=== PATIENT | female | born 1990 | race African-American/Black ===

== ENCOUNTER 2018-10-30 13:14 | Emergency (ER) | payer MEDICAID ==
[~2018-10-30] VITALS: Ht 162.6 cm; Wt 70.0 kg
[2018-10-30 13:28] VITALS: Ht 162.6 cm; Wt 70.0 kg
[2018-10-30 17:25] VITALS: BP 120/90
== END 2018-10-30 17:24 | disposition home or self-care (01) ==
LOC: D.ER 13:14
DX: F41.9 Anxiety disorder, unspecified (principal)

== ENCOUNTER 2018-11-12 02:24 | Emergency (ER) | payer MEDICAID ==
[~2018-11-12] VITALS: Ht 162.6 cm; Wt 74.5 kg
[2018-11-12 02:27] VITALS: Ht 162.6 cm; Wt 74.5 kg
[2018-11-12] MEDS ORDERED: NAPROSYN500 MG PO (02:58)
[2018-11-12 03:12] VITALS: BP 115/69
== END 2018-11-12 03:12 | disposition home or self-care (01) ==
LOC: D.ER 02:24
DX: M79.602 Pain in left arm (principal)